=== PATIENT | female | born 1990 | race Asian ===

== ENCOUNTER 2024-01-07 08:15 | Emergency (ER) | payer MEDICAID ==
[~2024-01-07] VITALS: Ht 162.6 cm; Wt 62.6 kg
[2024-01-07] MEDS ORDERED: IBUPROFEN 600 MG TABLET ONE (08:39)
[2024-01-07] MEDS: IBUPROFEN 600 MG TABLET PO ONE (08:41)
[2024-01-07 09:32] VITALS: BP 130/82; TEMP 98.5; O2SAT 100
== END 2024-01-07 09:32 | disposition home or self-care (01) ==
LOC: ER 08:22
DX: M79.601 Pain in right arm (principal); W01.0XXA Fall on same level from slipping, tripping and stumbling without subsequent striking against object, initial encounter; Y93.89 Activity, other specified; Y92.89 Other specified places as the place of occurrence of the external cause; Y99.8 Other external cause status
CPT/HCPCS: 73060-TC